=== PATIENT | female | born 1990 | race Caucasian/White ===

== ENCOUNTER 2022-09-01 19:24 | Emergency (ER) | payer MEDICAID, OTHER ==
[2022-09-01 21:25] VITALS: BP 123/79; PULSE 81; O2SAT 98
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
== END 2022-09-01 21:52 | disposition home or self-care (01) ==
LOC: ED 19:24
DX: Z04.1 Encounter for examination and observation following transport accident (principal); Z3A.09 9 weeks gestation of pregnancy; Z28.310 Unvaccinated for COVID-19
CPT/HCPCS: 76815; 99285